=== PATIENT | male | born 1955 | race American Indian/Alaskan Native ===

== ENCOUNTER 2017-04-18 06:57 | Day surgery (SDC) | payer OTHER ==
--- NOTE | 2017-04-18 07:49 | Anesthesia Consultation ---
Anesthesia Consult and Med Hx Date of service: 04/18/17 - Airway Anesthetic Teeth Evaluation: Good ROM Head & Neck: Adequate Mental/Hyoid Distance: Adequate Mallampati Class: Class III Intubation Access Assessment: Probably Good - Pulmonary Exam CTA: Yes - Cardiac Exam Cardiac Exam: RRR - Pre-Operative Health Status ASA Pre-Surgery Classification: ASA2 Proposed Anesthetic Plan: General - Pulmonary Hx Smoking: No - Cardiovascular System Hx Hypertension: Yes - Other Systems Hx Alcohol Use: Yes (weekly)
--- NOTE | 2017-04-18 07:49 | Anesthesia Day of Surgery ---
Anesthesia Day of Surgery - Day of Surgery Patient Examined: Yes Patient H&P Reviewed: Yes Patient is NPO: Yes
[2017-04-18] MEDS ORDERED: DILAUDID IV PRN (07:50)
[2017-04-18] MEDS ORDERED: ZOFRAN IV PRN (07:50)
[2017-04-18] MEDS ORDERED: LACTATED RINGERS 1,000 ML IV SCH (08:00)
[2017-04-18] MEDS ORDERED: ANCEF/STERILE WATER 2 GM/20 ML IV NR (09:30)
[2017-04-18] MEDS ORDERED: XYLOCAINE MPF 2% ONE (09:56)
[2017-04-18] MEDS ORDERED: SUBLIMAZE ONE (09:56)
[2017-04-18] MEDS ORDERED: DIPRIVAN 10 MG/ML IV ONE (09:57)
[2017-04-18] MEDS ORDERED: ePHEDrine SULFATE ONE (10:52)
[2017-04-18] MEDS ORDERED: ZOFRAN ONE (10:58)
[2017-04-18] MEDS ORDERED: DECADRON ONE (10:58)
--- NOTE | 2017-04-18 11:20 | Short Stay Summary ---
Short Stay Documentation Date of service: 04/18/17 - History H&P: obtained from office - Allergies and Medications Current Medications: Allergies No Known Allergies Allergy (Unverified 04/18/17 08:18) Home Medications Medication Instructions Recorded Confirmed Last Taken Type Ondansetron [Zofran TAB] 4 mg PO Q8HR PRN 04/18/17 04/18/17 04/17/17 History Oxycodone HCl/Acetaminophen 1 each PO Q6HR PRN 04/18/17 04/18/17 04/17/17 History [Percocet 2.5/325 mg] Sulfamethoxazole/Trimethoprim 1 each PO BID 04/18/17 04/18/17 04/16/17 History [Bactrim DS TAB] Tamsulosin [Flomax] 0.4 mg PO QDAY 04/18/17 04/18/17 04/16/17 History amLODIPine [Norvasc] 5 mg PO DAILY 04/18/17 04/18/17 04/18/17 05:45 History Active Medications Cefazolin Sodium (Ancef/Sterile Water 2 Gm/20 Ml) 2 gm IV PREOP NR Stop: 04/18/17 21:00 Hydromorphone HCl (Dilaudid) 0.5 mg IV Q10MIN PRN PRN Reason: Pain , Severe (7-10) Stop: 04/21/17 07:51 Lactated Ringer's (Lactated Ringers) 1,000 mls @ 100 mls/hr IV DIRECT ANN Last Admin: 04/18/17 08:55 Dose: 100 mls/hr - Brief post op/procedure progress note Date of procedure: 04/18/17 Pre-op diagnosis: rt renal stone - 10mm Post-op diagnosis: same Procedure: eswl - staged Anesthesia: GETA Surgeon: JUSTICE RUDD Estimated blood loss: minimal Pathology: none Condition: stable - Hospital course Hospital course: zofran, norco, & post op infoon chart - Disposition Condition at discharge: Stable Disposition: DC-01 TO HOME OR SELFCARE Short Stay Discharge Plan Follow up with: ROGE ANDRADE JR, MD [Primary Care Provider] - 7 Days
--- NOTE | 2017-04-18 11:32 | XRay Report ---
SUPINE KUB: History: Right kidney stone. The abdominal gas pattern is unremarkable. No masses or organomegaly is identified and there is no gross evidence of free air or fluid. An approximate 1 cm calcification overlies the expected position of the right renal pelvis. No other calcifications are detected. IMPRESSION: Right nephrolithiasis.
--- NOTE | 2017-04-18 13:04 | Post Anesthesia Evaluation ---
- Post Anesthesia Evaluation Patient Participated: Yes Airway Patent: Yes Stable Respiratory Function: Yes Nausea/Vomiting: No Temp > 96.8F: Yes Pain Manageable: Yes Adequeate Hydration: Yes Anesthesia Complications: No
[2017-04-18 14:02] VITALS: BP 150/84
--- NOTE | 2017-04-18 15:10 | Operative Report ---
PREOPERATIVE DIAGNOSIS: Right renal stone, 10 mm. POSTOPERATIVE DIAGNOSIS: Right renal stone, 10 mm. PROCEDURE: Right extracorporal shockwave lithotripsy (staged). SURGEON: Lenny Head MD ANESTHESIA: General. ESTIMATED BLOOD LOSS: Minimal. FLUIDS: Crystalloid. COMPLICATIONS: No complications. INDICATIONS: This patient is a 61-year-old gentleman, seen by Dr. St in the office, had significant right flank pain. CT of abdomen and pelvis revealed a 10 mm stone. He presents now for lithotripsy. Risks, benefits, and complications were explained. DESCRIPTION OF PROCEDURE: The patient was taken to the operative suite, placed in a supine position. After adequate general anesthesia, a stone was localized in 2 planes using fluoroscopy. Extracorporal shock wave lithotripsy was administered in maximum kV of 5 and 2500 shocks. Renal pause after 5 minutes. Adequate fragmentation could be appreciated. The patient tolerated the procedure well and was extubated and taken to recovery room. He will go home on [place], Zofran and a strainer. Follow up with Dr. St. JOB# [id number] C/NTS
== END 2017-04-18 12:45 | disposition home or self-care (01) ==
LOC: OR 06:57
PROVIDERS: ATTEND Urology
DX: I10 Essential (primary) hypertension (principal); Z72.89 Other problems related to lifestyle
CPT/HCPCS: 50590; 74000; J0690; J1100; J2405; J2704; J3010; J7120